=== PATIENT | female | born 1965 | race Caucasian/White ===

== ENCOUNTER → 2021-01-04 | Day surgery (SDC) | payer OTHER ==
[~2021-01-04] MED LIST: ATORVASTATIN CA10 MG PO; MOTRIN600 MG PO; PERCOCET 5-3251 EACH PO
[2021-01-04 07:27] LABS: HGB 14.6 g/dl (12.5-16.0); MCH 31.7 pg (25.0-31.0); MCV 93.5 fL (78.0-100.0); MPV 10.1 fL (6.0-9.5); RBC 4.6 M/uL (4.20-5.40); RDW 13.4 % (11.5-14.0); WBC 10.8 K/uL (4.0-10.5)
[2021-01-04 07:45] LABS: ALBUMIN 3.6 g/dL (3.4-5.0); BILIRUBIN - TOTAL 0.4 mg/dL (0.2-1.0); CREATININE 0.7 mg/dL (0.51-0.95); GLOBULIN (CALCULATION) 3.2 g/dL; POTASSIUM 3.8 mmol/L (3.5-5.1); TOTAL PROTEIN 6.8 g/dL (6.4-8.2)
== END | disposition home or self-care (01) ==
LOC: FAS 06:47
PROVIDERS: Surgery
DX: Z12.11 Encounter for screening for malignant neoplasm of colon (principal); K63.5 Polyp of colon; F17.210 Nicotine dependence, cigarettes, uncomplicated; Z20.822 Contact with and (suspected) exposure to COVID-19; Z90.49 Acquired absence of other specified parts of digestive tract; Z80.9 Family history of malignant neoplasm, unspecified; Z80.3 Family history of malignant neoplasm of breast
CPT/HCPCS: 36415; 80053; J1610; J2250; J2704; J7120

== ENCOUNTER → 2021-06-01 | Day surgery (SDC) | payer OTHER ==
[~2021-06-01] VITALS: Ht 165.1 cm; Wt 108.9 kg
[2021-06-01 06:39] LABS: HCT 43.6 % (37.0-47.0); HGB 14.6 g/dl (12.5-16.0); MCH 31.8 pg (25.0-31.0); MCHC 33.5 g/dL (32.0-36.0); MPV 9.9 fL (6.0-9.5); RBC 4.59 M/uL (4.20-5.40); RDW 14.6 % (11.5-14.0); WBC 9.4 K/uL (4.0-10.5)
[2021-06-01 07:19] LABS: ALBUMIN 3.2 g/dL (3.4-5.0); BILIRUBIN - TOTAL 0.4 mg/dL (0.2-1.0); BUN/CREAT RATIO (CALC) 24.7 RATIO; CREATININE 0.81 mg/dL (0.51-0.95); GLOBULIN (CALCULATION) 3.6 g/dL; POTASSIUM 3.9 mmol/L (3.5-5.1); TOTAL PROTEIN 6.8 g/dL (6.4-8.2)
== END | disposition home or self-care (01) ==
LOC: FAS 06:00
PROVIDERS: Orthopaedic Surgery
DX: S83.281A Other tear of lateral meniscus, current injury, right knee, initial encounter (principal); S83.241A Other tear of medial meniscus, current injury, right knee, initial encounter; S83.511A Sprain of anterior cruciate ligament of right knee, initial encounter; M17.11 Unilateral primary osteoarthritis, right knee; M79.4 Hypertrophy of (infrapatellar) fat pad; M25.861 Other specified joint disorders, right knee; E78.5 Hyperlipidemia, unspecified; F17.200 Nicotine dependence, unspecified, uncomplicated; X58.XXXA Exposure to other specified factors, initial encounter
CPT/HCPCS: 36415; 71045; 80053; 93005; J1885; J2250; J2405; J2704; J3010; J7120